=== PATIENT | female | born 1990 | race Caucasian/White ===

== ENCOUNTER 2021-05-23 01:34 | Emergency (ER) | payer SELFPAY ==
[~2021-05-23] VITALS: Ht 167.6 cm; Wt 62.1 kg
[2021-05-23 01:57] VITALS: BP 124/68
--- NOTE | 2021-05-23 02:21 | NUR ---
PT PRESENTED TO THE ED W/ CC OF ABD AND CHEST PAIN W/ PAIN SCALE OF 5/10, PT STATED SHE "GOT INTO AN ACCIDENT PRIOR AND WANTED TO CHECK ON HER CHEST PAIN", PT SITTING BEDSIDE READING A BOOK, NO SIGNS OF ACUTE DISTRESS, SAFETY MEASURES IN PLACE PMH: N/A ALLERGIES: NKA
--- NOTE | 2021-05-23 02:45 | NUR ---
PATIENT LEFT WITHOUT BEING SEEN BY DR. GARVIN. NO FURTHER CARE PROVIDED FOR PATIENT.
[2021-05-23] MEDS ORDERED: IBUPROFEN 800 MG TAB ONE (04:20)
== END 2021-05-23 02:45 | disposition left against medical advice (07) ==
LOC: MED 01:34
DX: R10.9 Unspecified abdominal pain (principal); Z53.21 Procedure and treatment not carried out due to patient leaving prior to being seen by health care provider

== ENCOUNTER 2022-08-02 18:57 | Emergency (ER) | payer OTHER ==
[~2022-08-02] VITALS: Ht 167.6 cm; Wt 79.4 kg
[2022-08-02 19:07] VITALS: BP 132/53
[2022-08-02 19:15] VITALS: BP 132/53
--- NOTE | 2022-08-02 20:00 | NUR ---
SEEN AND EXAMINED BY PA
--- NOTE | 2022-08-03 | NUR ---
REEVALUATED BY MARIE
--- NOTE | 2022-08-03 02:30 | NUR ---
Patient discharged with v/s stable. Written and verbal after care instructions given and explained. Patient verbalized understanding. Ambulatory with steady gait. All questions addressed prior to discharge. Advised to follow up with PMD.
== END 2022-08-03 02:30 | disposition home or self-care (01) ==
LOC: MED 18:57
DX: S39.012A Strain of muscle, fascia and tendon of lower back, initial encounter (principal); S20.211A Contusion of right front wall of thorax, initial encounter; R51.9 Headache, unspecified; F07.81 Postconcussional syndrome; V49.88XA Car occupant (driver) (passenger) injured in other specified transport accidents, initial encounter; Y93.89 Activity, other specified; Y92.89 Other specified places as the place of occurrence of the external cause; Y99.8 Other external cause status
CPT/HCPCS: 70450; 71045; 72110; 81025; 99284